=== PATIENT | male | born 1945 | race Caucasian/White ===

== ENCOUNTER 2017-01-10 13:35 | Emergency (ER) | payer OTHER, MEDICAID ==
[~2017-01-10] VITALS: Ht 177.8 cm; Wt 64.4 kg
[2017-01-10 13:41] VITALS: BP 128/71
--- NOTE | 2017-01-10 15:18 | NUR ---
PT AMBULATED TO BED 3 AT THIS TIME.
--- NOTE | 2017-01-10 15:20 | NUR ---
71/M PRESENT TO ER C/O LEFT ANKLE/FOOT PAIN x 01/01/2017. PT STATES HE ROLLED HIS LEFT ANKLE/FOOT LAST WEEK. PAIN 8/10 ACHING NON RADIATING. LEFT FOOT/ANKLE LIMITED ROM, POS PEDAL PULSES, POS SENSATION, NEG SIGN OF INJURY OR TRAUMA, NEG SWELLING OR REDNESS AT THIS TIME. AAO X4, PERRLA, BREATHING EVEN AND UNLABORED. ERMD NOTIFIED OF PATIENT STATUS.
--- NOTE | 2017-01-10 15:27 | NUR ---
Patient being evaluated by physician at bedside.
[2017-01-10 16:02] VITALS: BP 124/68
--- NOTE | 2017-01-10 16:02 | NUR ---
Patient discharged with v/s stable. Written and verbal after care instructions given and explained. Patient alert, oriented and verbalized understanding of instructions. Ambulatory with steady gait. All questions addressed prior to discharge. ID band removed. Patient advised to follow up with PMD. Rx of MOTRIN 600MG given. Patient educated on indication of medication including possible reaction and side effects. Opportunity to ask questions provided and answered.
== END 2017-01-10 16:02 | disposition home or self-care (01) ==
LOC: MED 13:35
DX: S93.492A Sprain of other ligament of left ankle, initial encounter (principal); Z88.0 Allergy status to penicillin; W01.0XXA Fall on same level from slipping, tripping and stumbling without subsequent striking against object, initial encounter; Y93.89 Activity, other specified; Y92.89 Other specified places as the place of occurrence of the external cause; Y99.8 Other external cause status
CPT/HCPCS: 73590; 73610; 73630; 99284; Q0092

== ENCOUNTER 2020-02-20 13:07 | Emergency (ER) | payer OTHER, MEDICAID ==
[~2020-02-20] VITALS: Ht 177.8 cm; Wt 55.3 kg
[2020-02-20 13:12] VITALS: BP 114/78
--- NOTE | 2020-02-20 13:12 | NUR ---
PT AMBULATED TO ER BED 06
--- NOTE | 2020-02-20 13:22 | NUR ---
74/M presents to ED with c/o left inguinal hernia x1 year. Pt denies pain at this time. Pt states "it's puffing out and then goes back in and I just want to make sure it's good." Denies N/V/D. Denies fever or chills.
--- NOTE | 2020-02-20 13:46 | NUR ---
Patient discharged with v/s stable. Written and verbal after care instructions given and explained. Patient verbalized understanding. Ambulatory with steady gait. All questions addressed prior to discharge. Advised to follow up with PMD.
== END 2020-02-20 13:46 | disposition home or self-care (01) ==
LOC: MED 13:07
DX: K40.90 Unilateral inguinal hernia, without obstruction or gangrene, not specified as recurrent (principal); F17.210 Nicotine dependence, cigarettes, uncomplicated; Z88.0 Allergy status to penicillin; Z71.6 Tobacco abuse counseling
CPT/HCPCS: 99281